=== PATIENT | female | born 1955 | race Caucasian/White ===

== ENCOUNTER 2023-10-16 14:46 | Inpatient (IN) | payer MEDICARE, BC ==
[2023-10-16] MEDS ORDERED: Sodium Chloride 0.9% 10 ML Syringe FLUSH PRN (15:49)
[2023-10-16 16:11] LABS: HEMATOCRIT 34.4 % (34.3-46.0); HEMOGLOBIN 11.8 g/dL (11.2-15.5); MEAN CORPUSCULAR HGB CONC 34.3 g/dL (31.6-35.5); MEAN CORPUSCULAR VOLUME 96.1 fL (81.4-99.0); RED BLOOD CELL COUNT 3.58 M/uL (3.77-5.24); WHITE BLOOD CELL COUNT,WBC 16.4 K/uL (3.2-11.0)
[2023-10-16 16:23] LABS: APPEARANCE,URINE SLIGHTLY CLOUDY (CLEAR); BILIRUBIN,URINE NEGATIVE (NEGATIVE); COLOR,URINE YELLOW (YELLOW); GLUCOSE,URINE NEGATIVE (NEGATIVE); KETONES,URINE NEGATIVE (NEGATIVE); LEUKOCYTE ESTERASE,URINE SMALL (NEGATIVE); NITRITE,URINE NEGATIVE (NEGATIVE); OCCULT BLOOD,URINE TRACE-LYSED (NEGATIVE); PH,URINE 6.5 (5.0-8.0); PROTEIN,URINE 30 mg/dL (NEGATIVE)
[2023-10-16 16:28] LABS: AMORPHOUS SEDIMENT,URINE NOT SEEN; BACTERIA,URINE FEW; EPITHELIAL CELLS,URINE FEW; MUCUS,URINE NOT SEEN; WBC,URINE SEMI-PACKED (0-5)
[2023-10-16 16:32] LABS: A/G RATIO 0.4 (1.2-2.2); ALANINE AMINOTRANSFERASE,ALT 45 U/L (12-78); ALBUMIN 2.1 g/dL (3.4-5.0); ALKALINE PHOSPHATASE 219 U/L (46-116); ASPARTATE AMNIOTRANSFERASE,AST 37 U/L (15-37); BILIRUBIN TOTAL 0.5 mg/dL (0.2-1.0); BLOOD UREA NITROGEN,BUN 60 mg/dL (7-18); CALCIUM 9.2 mg/dL (8.5-10.1); CARBON DIOXIDE,CO2 21 mmol/L (21-32); CHLORIDE,CL 104 mmol/L (100-108); CREATININE 1.9 mg/dL (0.6-1.0); EST CRCL DRUG DOSING (CG) 26.16 mL/min; ESTIMATED GFR 28 mL/min (>60); GLUCOSE RANDOM 105 mg/dL (74-106); POTASSIUM,K 3.9 mmol/L (3.6-5.2); PROTEIN TOTAL,TP 6.9 g/dL (6.4-8.2); SODIUM,NA 135 mmol/L (140-148)
[2023-10-16 16:33] LABS: ANION GAP 13.9 mmol/L (5.0-14.0)
[2023-10-16 16:43] LABS: C-REACTIVE PROTEIN 28.77 mg/dL (<0.50)
[2023-10-16] MEDS: cefTRIAXone 2 GM in Sodium Chloride 0.9% 50 ML IV ONE (19:18)
[2023-10-16] MEDS: Sodium Chloride 0.9% 1,000 ML IV SCH ×2 (19:18→22:29)
[2023-10-16] MEDS ORDERED: Ondansetron 4 MG Tab.DIS PO PRN (20:44)
[2023-10-16] MEDS ORDERED: Docusate Sodium 100 MG Cap PO PRN (20:44)
[2023-10-16] MEDS ORDERED: Naloxone 0.4 MG/ML SDV IVPUSH PRN (20:44)
[2023-10-16] MEDS ORDERED: Ondansetron 4 MG/2 ML SDV IV PRN (20:44)
[2023-10-16] MEDS ORDERED: Morphine 2 MG/ML SYRINGE IVPUSH PRN (20:44)
[2023-10-16] MEDS ORDERED: Bisacodyl 5 MG Tab PO PRN (20:44)
[2023-10-16] MEDS ORDERED: Ketorolac 30 MG/ML SDV IVPUSH PRN (20:44)
[2023-10-16] MEDS ORDERED: Acetaminophen/HYDROcodone 325-5 MG Tab PO PRN (20:44)
[2023-10-16] MEDS: Lactated Ringers 1,000 ML IV ONE (20:51)
[2023-10-16] MEDS: Pantoprazole 40 MG Vial IV SCH (21:52)
[2023-10-16] MEDS: Melatonin 3 MG Tab PO SCH (21:52)
[2023-10-16] MEDS: Enoxaparin 30 MG/0.3 ML Syringe SUBCUT SCH (21:52)
[2023-10-17] MEDS: Acetaminophen 325 MG Tab PO PRN (02:23)
[2023-10-17 05:23] LABS: BASOPHILS PERCENT AUTO 0.1 % (0.1-1.3); EOSINOPHILS PERCENT AUTO 0.1 % (0.0-5.4); HEMATOCRIT 29.1 % (34.3-46.0); HEMOGLOBIN 10.2 g/dL (11.2-15.5); IMMATURE GRAN ABSOLUTE AUTO 0.17 K/uL (0.00-0.23); IMMATURE GRAN PERCENT AUTO 1.2 % (0.0-0.7); LYMPHOCYTES ABSOLUTE AUTO 0.68 K/uL (0.8-3.3); MEAN CORPUSCULAR HGB CONC 35.1 g/dL (31.6-35.5); MEAN CORPUSCULAR VOLUME 94.2 fL (81.4-99.0); MONOCYTES PERCENT AUTO 7.3 % (3.3-12.6); NEUTROPHILS ABSOLUTE AUTO 11.74 K/uL (1.0-7.6); NEUTROPHILS PERCENT AUTO 86.3 % (40.0-78.1); PLATELET COUNT,PLT 173 K/uL (130-375); RED BLOOD CELL COUNT 3.09 M/uL (3.77-5.24); WHITE BLOOD CELL COUNT,WBC 13.6 K/uL (3.2-11.0)
[2023-10-17 05:24] LABS: BASOPHILS ABSOLUTE AUTO 0.01 K/uL (0.00-0.10); EOSINOPHILS ABSOLUTE AUTO 0.01 K/uL (0.00-0.40)
[2023-10-17 05:46] LABS: CALCIUM 8.4 mg/dL (8.5-10.1); CREATININE 1.5 mg/dL (0.6-1.0); EST CRCL DRUG DOSING (CG) 33.14 mL/min
[2023-10-17] MEDS: Levothyroxine 112 MCG Tab PO SCH (08:10)
[2023-10-17] MEDS: cefTRIAXone 1 GM in Sodium Chloride 0.9% 50 ML IV SCH (08:10)
[2023-10-17] MEDS ORDERED: Enoxaparin 30 MG/0.3 ML Syringe SUBCUT SCH (21:00)
[2023-10-17] MEDS: Pantoprazole 40 MG Tab.CR PO SCH (21:23)
[2023-10-17] MEDS: diphenhydrAMINE 25 MG Cap PO PRN (21:23)
[2023-10-17] MEDS: Enoxaparin 40 MG/0.4 ML Syringe SUBCUT SCH (21:23)
[2023-10-17] MEDS: atorvaSTATin 10 MG Tab PO SCH (21:23)
[2023-10-18 05:08] LABS: HEMATOCRIT 29.1 % (34.3-46.0); HEMOGLOBIN 10.1 g/dL (11.2-15.5); MEAN CORPUSCULAR HEMOGLOBIN 32.7 pg (31.6-35.5); MEAN CORPUSCULAR HGB CONC 34.7 g/dL (31.6-35.5); MEAN CORPUSCULAR VOLUME 94.2 fL (81.4-99.0); RED BLOOD CELL COUNT 3.09 M/uL (3.77-5.24); WHITE BLOOD CELL COUNT,WBC 13.1 K/uL (3.2-11.0)
[2023-10-18 05:28] LABS: CALCIUM 8.5 mg/dL (8.5-10.1); CREATININE 1.5 mg/dL (0.6-1.0); EST CRCL DRUG DOSING (CG) 33.14 mL/min; POTASSIUM,K 4.6 mmol/L (3.6-5.2)
[2023-10-18 05:30] LABS: ANION GAP 15.6 mmol/L (5.0-14.0)
[2023-10-19 05:20] LABS: HEMATOCRIT 30.4 % (34.3-46.0); HEMOGLOBIN 10.4 g/dL (11.2-15.5); MEAN CORPUSCULAR HEMOGLOBIN 32.9 pg (31.6-35.5); MEAN CORPUSCULAR HGB CONC 34.2 g/dL (31.6-35.5); MEAN CORPUSCULAR VOLUME 96.2 fL (81.4-99.0); RED BLOOD CELL COUNT 3.16 M/uL (3.77-5.24); WHITE BLOOD CELL COUNT,WBC 11.5 K/uL (3.2-11.0)
[2023-10-19 05:46] LABS: CALCIUM 8.7 mg/dL (8.5-10.1); CREATININE 1.4 mg/dL (0.6-1.0); EST CRCL DRUG DOSING (CG) 35.5 mL/min; POTASSIUM,K 4.4 mmol/L (3.6-5.2)
[2023-10-19 05:49] LABS: ANION GAP 16.4 mmol/L (5.0-14.0)
[2023-10-19] MEDS: Ketorolac 15 MG/ML SDV IVPUSH PRN (20:56)
[2023-10-20 05:34] LABS: HEMATOCRIT 30.6 % (34.3-46.0); HEMOGLOBIN 10.3 g/dL (11.2-15.5); MEAN CORPUSCULAR HEMOGLOBIN 32.6 pg (31.6-35.5); MEAN CORPUSCULAR HGB CONC 33.7 g/dL (31.6-35.5); MEAN CORPUSCULAR VOLUME 96.8 fL (81.4-99.0); RED BLOOD CELL COUNT 3.16 M/uL (3.77-5.24); WHITE BLOOD CELL COUNT,WBC 10.7 K/uL (3.2-11.0)
[2023-10-20 05:50] LABS: CALCIUM 8.9 mg/dL (8.5-10.1); CREATININE 1.5 mg/dL (0.6-1.0); EST CRCL DRUG DOSING (CG) 33.14 mL/min; POTASSIUM,K 4.8 mmol/L (3.6-5.2)
[2023-10-20 05:58] LABS: ANION GAP 14.8 mmol/L (5.0-14.0)
[2023-10-20] MEDS: Ciprofloxacin 500 MG Tab PO ONE (10:45)
== END 2023-10-20 11:15 | disposition home or self-care (01) | DRG 690 ==
LOC: JP.ED 14:46 → JP.MS 19:49
PROVIDERS: ADMIT Hospitalist; ATTEND Hospitalist
DX: N39.0 Urinary tract infection, site not specified (principal); R78.81 Bacteremia; N17.9 Acute kidney failure, unspecified; E87.20 Acidosis, unspecified; B96.20 Unspecified Escherichia coli [E. coli] as the cause of diseases classified elsewhere; E78.00 Pure hypercholesterolemia, unspecified; E03.9 Hypothyroidism, unspecified; Z79.899 Other long term (current) drug therapy; Z88.8 Allergy status to other drugs, medicaments and biological substances; Z90.49 Acquired absence of other specified parts of digestive tract
CPT/HCPCS: 36415; 74176; 80053; 81001; 83605; 83690; 85027; 86140; 87040 ×2; 87077; 87086; 87088; 87186 ×2; J0696; J3490; J7030; 80048; 83735; 85025; 99222; 99231; 99238; A9270-GY; C9113; J1650; J1885; J7120